=== PATIENT | male | born 1990 | race Hispanic/Latino ===

== ENCOUNTER 2017-05-29 19:13 | Emergency (ER) | payer OTHER ==
[2017-05-29] MEDS ORDERED: MORPHINE SULFATE 2 MG/ML 1ML SYG ONE (21:19)
[2017-05-29] MEDS ORDERED: ONDANSETRON HCL 4 MG/2 ML VIAL ONE (21:19)
[2017-05-29 21:22] LABS: BASOPHILS % (AUTO) 1.3 % (0.0-5.0); HEMATOCRIT 26.6 % (42-54); LYMPHOCYTES % (AUTO) 22.6 % (21.0-51.0); MEAN CORPUSCULAR HEMOGLOBIN 24.4 pg (27.0-33.0); MEAN CORPUSCULAR HGB CONC 33.1 g/dL (32.0-36.0); MEAN CORPUSCULAR VOLUME 73.7 fL (79-99); MONOCYTES % (AUTO) 8.6 % (3.0-13.0); NEUTROPHILS % (AUTO) 51.5 % (40.0-77.0); PLATELET COUNT (AUTO) 416 K/uL (130-400); RED BLOOD CELL COUNT(AUTO) 3.61 MIL/uL (4.50-6.20); RED CELL DISTRIBUTION WIDTH 26.1 % (11.0-15.5); WHITE BLOOD COUNT (AUTO) 8.7 K/uL (4.8-10.8)
[2017-05-29 21:32] LABS: CREATININE 1.6 mg/dL (0.5-1.5)
[2017-05-29 21:35] LABS: ALBUMIN 2.8 g/dL (3.5-5.0); BILIRUBIN,TOTAL 0.2 mg/dL (0.2-1.0); TOTAL PROTEIN, SERUM 8.7 g/dL (6.0-8.3)
[2017-05-29] MEDS ORDERED: SODIUM CHLORIDE 0.9% 500ML 500 ML IV ONE (23:12)
== END 2017-05-30 00:25 | disposition home or self-care (01) ==
LOC: EEVIPCON 19:13 → EDH 19:13
DX: N20.2 Calculus of kidney with calculus of ureter (principal); D64.9 Anemia, unspecified; Z93.6 Other artificial openings of urinary tract status
CPT/HCPCS: 36415; 80053; 83690; 85025; 96374; 96375; 99284; J2405; J7040

== ENCOUNTER → 2017-05-31 | Outpatient (CLI) | payer OTHER | END | disposition home or self-care (01) | LOC: RAH 10:38 | PROVIDERS: ATTEND Internal Medicine | DX: Z93.6 Other artificial openings of urinary tract status (principal) | CPT/HCPCS: 74018 ==

== ENCOUNTER → 2017-06-18 | Outpatient (CLI) | payer OTHER | LOC: RAH 14:11 | PROVIDERS: ATTEND Internal Medicine | DX: Z86.718 Personal history of other venous thrombosis and embolism (principal) | CPT/HCPCS: 93971 ==